=== PATIENT | female | born 1990 | race Asian ===

== ENCOUNTER 2016-11-01 00:25 | Emergency (ER) | payer OTHER ==
[2016-11-01 01:08] LABS: BASO % 0.2 % (0.0-1.0); EOS # 0.2 K/mm3 (0.0-0.50); EOS % 1.3 % (0.0-3.0); LARGE UNSTAINED CELL # 0.1 K/mm3 (0.0-0.4); LARGE UNSTAINED CELL % 0.9 % (0.0-4.0); LYMPH # 1.6 K/mm3 (1.5-6.5); LYMPH % 11.9 % (24.0-44.0); MEAN CORPUSCULAR HEMOGLOBIN 29.2 pg (27.0-33.0); MEAN CORPUSCULAR HGB CONC 33.9 g/dl (32.0-36.5); MEAN CORPUSCULAR VOLUME 86.1 fl (80.0-96.0); MONO # 0.5 K/mm3 (0.0-0.8); MONO % 3.4 % (0.0-5.0); NEUTROPHILS # 11.2 K/mm3 (1.8-7.7); NEUTROPHILS % 82.2 % (36.0-66.0); PLATELET COUNT, AUTOMATED 320 k/mm3 (150-450); WHITE BLOOD COUNT 13.6 K/mm3 (4.0-10.0)
[2016-11-01] MEDS ORDERED: METOCLOPRAMIDE INJ 10MG/2ML VIAL (J2765) As Ordered ONE (01:11)
[2016-11-01] MEDS ORDERED: MORPHINE 4 MG/ML 1ML SYRINGE As Ordered ONE (01:11)
[2016-11-01 01:36] LABS: ALBUMIN 4.1 GM/DL (3.2-5.2); ALBUMIN/GLOBULIN RATIO 0.93 (1.00-1.93); ALKALINE PHOSPHATASE 59 U/L (45-117); ALT/SGPT 26 U/L (12-78); AMYLASE 72 U/L (25-115); ANION GAP 12 MEQ/L (8-16); AST/SGOT 23 U/L (15-37); BILIRUBIN,DIRECT 0.1 MG/DL (0.0-0.2); BILIRUBIN,TOTAL 0.5 MG/DL (0.2-1.0); BLOOD UREA NITROGEN 14 MG/DL (7-18); CALCIUM LEVEL 9.3 MG/DL (8.5-10.1); CARBON DIOXIDE LEVEL 24 MEQ/L (21-32); CHLORIDE LEVEL 102 MEQ/L (98-107); CREATININE FOR GFR 0.93 MG/DL (0.55-1.02); GLOMERULAR FILTRATION RATE > 60.0 (>60); GLUCOSE, FASTING 119 MG/DL (70-105); POTASSIUM SERUM 3.7 MEQ/L (3.5-5.1); SODIUM LEVEL 138 MEQ/L (136-145); TOTAL PROTEIN 8.5 GM/DL (6.4-8.2)
[2016-11-01 01:37] LABS: CONTROL LINE HCG INT CTR LINE PRESENT
[2016-11-01] MEDS ORDERED: CIPROFLOXACIN/D5W 400 MG/200 ML BAG (J0744) As Ordered ONE (03:24)
[2016-11-01] MEDS ORDERED: ONDANSETRON 4MG/2ML VIAL (J2405) As Ordered ONE (04:24)
--- NOTE | 2016-11-01 04:59 | EDDOCDS ---
Nurse's Notes [facility] Name: Brandy Garrison Age: 26 yrs Sex: Female : 1990 Arrival Date: 11/01/2016 Time: 00:25 Bed 12 Private MD: Diagnosis: Infectious gastroenteritis and colitis, unspecified-viral;Urinary tract infection, site not specified Presentation: 11/01 00:38 Presenting complaint: Significant other states: Epigastric pain, nausea and vomiting km since 2330. Suicide/Homicide risk assessment- the patient denies having any suicidal and/or homicidal ideations and does not present with any other emotional, behavioral or mental health complaints. Status: The patient is a dependent. Transition of care: patient was not received from another setting of care. 00:38 Acuity: [place]IA [place] CARMEN Level 3 km 00:38 Method Of Arrival: Walkin/Carried/Asstd km Triage Assessment: 00:40 General: Appears uncomfortable, Behavior is appropriate for age, cooperative, pleasant. [facility] [place]: Location: epigastric area Pain currently is 0 out of 10 on a pain scale. At worst was 7 out of 10 on a pain scale. Pain began 1 hour ago Is episodic. Pt Declines HIV testing. GI: Reports epigastric pain, nausea, vomiting. 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 BCP 1 tab once daily - PMHx: none; - PSHx: none; - Social history: Smoking status: Patient states was never smoker of tobacco. No barriers to communication noted, The patient speaks fluent Greek, Speaks appropriately for age. - Family history: Not pertinent. - : The pt / caregiver states he / she is not on anticoagulants. Home medication list is obtained from the patient. - Exposure Risk Screening:: None identified. Screenin:18 Screening information is obtained from the patient. Fall risk: No risks identified. jmb Assistance ADL's: requires no assistance with activities of daily living. Abuse/DV Screen: The patient / caregiver reports he/she is: not in a situation that causes fear, pain or injury. Nutritional screening: No deficits noted. home support is adequate. 04:56 Advance Directives: Further advance directive information is declined. [facility] Assessment: 01:18 General: Appears in no apparent distress, Behavior is appropriate for age, cooperative. jmb Pain: Denies pain. 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 Cardiovascular: Capillary refill < 3 seconds Heart tones S1 S2 present Pulses are all present. Rhythm is regular. Respiratory: Airway is patent Respiratory effort is even, unlabored, Respiratory pattern is regular, symmetrical, Breath sounds are clear bilaterally. GI: Abdomen is non- distended Bowel sounds present X 4 quads. Abd is soft X 4 quads. Derm: Skin is pink, warm & dry. Musculoskeletal: Range of motion intact in all extremities. 01:52 General: Appears in no apparent distress, comfortable, Behavior is appropriate for age, jmb cooperative. Neurological: Level of Consciousness is awake, alert, obeys commands, Oriented to person, place, time. Respiratory: Airway is patent Respiratory effort is even, unlabored, Respiratory pattern is regular, symmetrical. 02:17 General: Appears in no apparent distress, comfortable, Behavior is appropriate for age, jmb cooperative. Neurological: Level of Consciousness is awake, alert, obeys commands, Oriented to person, place, time. Respiratory: Airway is patent Respiratory effort is even, unlabored, Respiratory pattern is regular, symmetrical. 02:50 General: Appears in no apparent distress, comfortable, Behavior is appropriate for age, jmb cooperative, Patient laying on stretcher, patient reports nausea is better. NO complaints of pain at this time. at bedside. . Neurological: Level of Consciousness is awake, alert, obeys commands, Oriented to person, place, time. Respiratory: Airway is patent Respiratory effort is even, unlabored, Respiratory pattern is regular, symmetrical. 03:34 General: Appears in no apparent distress, Behavior is appropriate for age, cooperative, sls1 IV antibiotics infusing without difficulty, pt tolerating sips of gingerale, SO at bedside, denies needs or complaints, call samuel in reach will continue to assess. Pain: Denies pain. Neurological: Level of Consciousness is awake, alert. Respiratory: Airway is patent Respiratory effort is even, unlabored, Respiratory pattern is regular, symmetrical. Derm: No deficits noted. 04:31 Reassessment: Patient appears in no apparent distress at this time. Pt vomited about sls1 100cc of emesis, medicated per order will continue to assess. 04:56 Reassessment: Patient appears in no apparent distress at this time. Patient states sls1 symptoms have improved. Discharge instructions reviewed with pt including medication use and follow up care, verbalizes understanding. Reports nausea has subsided and denies c/o pain. Pain: Denies pain. Neurological: Level of Consciousness is awake, alert. Respiratory: Airway is patent Respiratory effort is even, unlabored, Respiratory pattern is regular, symmetrical. Vital Signs: 00:45 BP 117 / 71; Pulse 77; Resp 18; Temp 97.8(O); Pulse Ox 100% on R/A; Pain 0/10; jmb 01:21 BP 90 / 52 Supine; Pulse 77; Resp 18; Pulse Ox 100% on R/A; jmb 01:21 BP 99 / 66 Sitting; Pulse 83; Resp 18; Pulse Ox 98% on R/A; jmb 01:21 BP 99 / 63 Standing; Pulse 74; Resp 18; Pulse Ox 99% on R/A; jmb 04:56 BP 100 / 54; Pulse 67; Resp 18; Temp 97.6(TE); Pulse Ox 99% on R/A; Pain 0/10; sls1 Vitals: 00:40 Log In Time: November 01, 2016 at 00:27. [facility] [place] Course: 00:27 Patient visited by Sophie Avila Reg. hs2 00:27 Patient moved to [facility] 00:40 Triage Initiated [facility] 00:44 Tawanda Harris DO is Attending Physician. cs11 00:44 Patient visited by Tawanda Harris DO. 11 00:44 Patient moved to [address] [place] [address] 01:18 The patient / caregiver is instructed regarding the plan of care and ED course. jmade 01:18 Inserted saline lock: 20 gauge in right antecubital area and blood collected. The b patient tolerated the procedure well. Labs drawn. (by ED staff). Sent per order to lab. 01:22 Patient visited by Gerardo Laird RN. ulises 01:31 Urine Culture Sent. napoleonb 01:31 Urinalysis Sent. napoleonb 01:53 Patient visited by Gerardo Laird RN. ulises 02:18 Patient visited by Gerardo Laird RN. ulises 02:51 Patient visited by Gerardo Laird RN. jmb 03:26 [facility]. cs11 03:35 Patient visited by Maryam Mccoy RN. sls1 04:09 Patient name changed from Brandy\S\\S\Bladimir\S\ to Brandy\S\ \S\Bladimir. EDMS 04:12 [facility] Payment Agreement was scanned into [employer] and attached to record. hs2 04:31 Patient visited by Maryam Mccoy RN. sls1 04:56 Discontinued lock intact, bleeding controlled, pressure dressing applied, No sls1 redness/swelling at site. No procedures done that require assistance. Administered Medications: 01:30 Drug: morphine 4 mg [morphine 4 mg/mL intravenous cartridge (1 mL)] Route: IVP; Site: b right antecubital; 01:55 Follow up: Response: Pain is decreased [facility] 01:31 Drug: NS 0.9% 1000 ml [sodium chloride 0.9 % intravenous solution] Route: IV; Rate: jmb bolus; Site: right antecubital; 04:30 Follow up: IV Status: Completed infusion; IV Intake: 1000ml [facility] 01:31 Drug: Metoclopramide 10 mg [metoclopramide 5 mg/mL injection solution] Route: IV; Rate: jmb 40 mg/hr; Infused Over: 15 mins; Site: right antecubital; 01:56 Follow up: Response: Nausea is resolved b 03:00 Follow up: IV Status: Completed infusion [facility] 03:34 Drug: Ciprofloxacin 400 mg [ciprofloxacin 400 mg/200 mL in 5 % dextrose intravenous [facility] piggyback] Route: IVPB; Rate: 200 mL/hr; Infused Over: 60 mins; Site: right antecubital; 04:30 Follow up: IV Status: Completed infusion; IV Intake: 200ml [facility] 04:30 Drug: Ondansetron 8 mg [ondansetron HCl 2 mg/mL intravenous solution (3.75 mL)] Route: sls1 IVP; Site: right antecubital; 04:56 Follow up: Response: Nausea is resolved [facility] Intake: 04:30 IV: 200.00ml; Total: 200.00ml. sls1 04:30 IV: 1000.00ml; Total: 1200.00ml. [facility] Order Results: Lab Order: CBC with Diff; SPEC'M 11/01/16 00:58 Test: WHITE BLOOD COUNT; Value: 13.6; Range: 4.0-10.0; Abnormal: Above high normal; Units: K/mm3; Status: F Test: RED BLOOD COUNT; Value: 5.16; Range: 4.00-5.40; Units: M/mm3; Status: F Test: HEMOGLOBIN; Value: 15.1; Range: 12.0-16.0; Units: g/dl; Status: F Test: HEMATOCRIT; Value: 44.4; Range: 36.0-47.0; Units: %; Status: F Test: MEAN CORPUSCULAR VOLUME; Value: 86.1; Range: 80.0-96.0; Units: fl; Status: F Test: MEAN CORPUSCULAR HEMOGLOBIN; Value: 29.2; Range: 27.0-33.0; Units: pg; Status: F Test: MEAN CORPUSCULAR HGB CONC; Value: 33.9; Range: 32.0-36.5; Units: g/dl; Status: F Test: RED CELL DISTRIBUTION WIDTH; Value: 12.0; Range: 11.5-14.5; Units: %; Status: F Test: PLATELET COUNT, AUTOMATED; Value: 320; Range: 150-450; Units: k/mm3; Status: F Test: NEUTROPHILS %; Value: 82.2; Range: 36.0-66.0; Abnormal: Above high normal; Units: %; Status: F Test: LYMPH %; Value: 11.9; Range: 24.0-44.0; Abnormal: Below low normal; Units: %; Status: F Test: MONO %; Value: 3.4; Range: 0.0-5.0; Units: %; Status: F Test: EOS %; Value: 1.3; Range: 0.0-3.0; Units: %; Status: F Test: BASO %; Value: 0.2; Range: 0.0-1.0; Units: %; Status: F Test: LARGE UNSTAINED CELL %; Value: 0.9; Range: 0.0-4.0; Units: %; Status: F Test: NEUTROPHILS #; Value: 11.2; Range: 1.8-7.7; Abnormal: Above high normal; Units: K/mm3; Status: F Test: LYMPH #; Value: 1.6; Range: 1.5-6.5; Units: K/mm3; Status: F Test: MONO #; Value: 0.5; Range: 0.0-0.8; Units: K/mm3; Status: F Test: EOS #; Value: 0.2; Range: 0.0-0.50; Units: K/mm3; Status: F Test: BASO #; Value: 0.0; Range: 0.0-0.2; Units: K/mm3; Status: F Test: LARGE UNSTAINED CELL #; Value: 0.1; Range: 0.0-0.4; Units: K/mm3; Status: F Lab Order: [facility] Profile[facility]58 Test: GLUCOSE, FASTING; Value: 119; Range: 70-105; Abnormal: Above high normal; Units: MG/DL; Status: F Test: BLOOD UREA NITROGEN; Value: 14; Range: 7-18; Units: MG/DL; Status: F Test: CREATININE FOR GFR; Value: 0.93; Range: 0.55-1.02; Units: MG/DL; Status: F Test: GLOMERULAR FILTRATION RATE; Value: > 60.0; Range: >60; Status: F Test: SODIUM LEVEL; Value: 138; Range: 136-145; Units: MEQ/L; Status: F Test: POTASSIUM SERUM; Value: 3.7; Range: 3.5-5.1; Units: MEQ/L; Status: F Test: CHLORIDE LEVEL; Value: 102; Range: 98-107; Units: MEQ/L; Status: F Test: CARBON DIOXIDE LEVEL; Value: 24; Range: 21-32; Units: MEQ/L; Status: F Test: ANION GAP; Value: 12; Range: 8-16; Units: MEQ/L; Status: F Test: CALCIUM LEVEL; Value: 9.3; Range: 8.5-10.1; Units: MG/DL; Status: F Test Note: ; Units are mL/min/1.73 m2 Chronic Kidney Disease Staging per NKF: Stage I & II GFR >=60 Normal to Mildly Decreased Stage III GFR 30-59 Moderately Decreased Stage IV GFR 15-29 Severely Decreased Stage V GFR <15 Very Little GFR Left ESRD GFR <15 on MANAGER LVN Lab Order: Liver Profile; [facility] 11/01/16 00:58 Test: AST/SGOT; Value: 23; Range: 15-37; Units: U/L; Status: F Test: ALT/SGPT; Value: 26; Range: 12-78; Units: U/L; Status: F Test: ALKALINE PHOSPHATASE; Value: 59; Range: 45-117; Units: U/L; Status: F Test: BILIRUBIN,TOTAL; Value: 0.5; Range: 0.2-1.0; Units: MG/DL; Status: F Test: BILIRUBIN,DIRECT; Value: 0.1; Range: 0.0-0.2; Units: MG/DL; Status: F Test: TOTAL PROTEIN; Value: 8.5; Range: 6.4-8.2; Abnormal: Above high normal; Units: GM/DL; Status: F Test: ALBUMIN; Value: 4.1; Range: 3.2-5.2; Units: GM/DL; Status: F Test: ALBUMIN/GLOBULIN RATIO; Value: 0.93; Range: 1.00-1.93; Abnormal: Below low normal; Status: F Lab Order: Amylase; [facility] 11/01/16 00:58 Test: AMYLASE; Value: 72; Range: 25-115; Units: U/L; Status: F Lab Order: Lipase; [facility] 11/01/16 00:58 Test: LIPASE; Value: 187; Range: 73-393; Units: U/L; Status: F Lab Order: HCG,Serum Qualitative; [facility] 11/01/16 00:58 Test: HCG, SERUM QUALITATIVE; Value: NEGATIVE; Range: NEGATIVE; Status: F Lab Order: Urinalysis; [facility] 11/01/16 01:28 Test: APPEARANCE, URINE; Value: CLOUDY; Range: CLEAR; Abnormal: Above high normal; Status: F Test: COLOR, URINE; Value: RUBEN; Range: YELLOW; Status: F Test: PH,URINE; Value: 7.0; Range: 5.0-9.0; Units: UNITS; Status: F Test: SPECIFIC GRAVITY URINE AUTO; Value: 1.020; Range: 1.002-1.035; Status: F Test: PROTEIN, URINE AUTO; Value: 1+; Range: NEGATIVE; Abnormal: Above high normal; Units: mg/dL; Status: F Test: GLUCOSE, URINE (UA) AUTO; Value: NEGATIVE; Range: NEGATIVE; Units: mg/dL; Status: F Test: KETONE, URINE AUTO; Value: 2+; Range: NEGATIVE; Abnormal: Above high normal; Units: mg/dL; Status: F Test: UROBILINOGEN, URINE AUTO; Value: 0.2; Range: 0.0-2.0; Units: mg/dL; Status: F Test: BILIRUBIN, URINE AUTO; Value: NEGATIVE; Range: NEGATIVE; Status: F Test: NITRITE, URINE AUTO; Value: NEGATIVE; Range: NEGATIVE; Status: F Test: LEUKOCYTE ESTERASE, URINE AUTO; Value: TRACE; Range: NEGATIVE; Abnormal: Above high normal; Status: F Test: BLOOD, URINE BLOOD; Value: NEGATIVE; Range: NEGATIVE; Status: F Test: WBC, URINE AUTO; Value: 7; Range: 0-3; Abnormal: Above high normal; Units: /HPF; Status: F Test: RBC, URINE AUTO; Value: 1; Range: 0-3; Units: /HPF; Status: F Test: BACTERIA, URINE AUTO; Value: 1+; Range: NEGATIVE; Abnormal: Above high normal; Status: F Test: SQUAMOUS EPITHELIAL CELL UR AU; Value: 6; Range: 0-6; Units: /HPF; Status: F Test: MUCUS, URINE; Value: SMALL; Range: NEGATIVE; Status: F Test: HYALINE CAST, URINE AUTO; Value: 17; Range: 0-1; Units: /LPF; Status: F Outcome: 03:27 Discharge ordered by Provider. [facility] 04:56 Discharge Assessment: Patient awake, alert and oriented x 3. No cognitive and/or sls1 functional deficits noted. Patient verbalized understanding of disposition instructions. patient administered narcotics - no. The following High Risk Discharge criteria are identified: None. Discharged to home ambulatory, with significant other. Condition: stable. Discharge instructions given to patient, Instructed on discharge instructions, follow up and referral plans. medication usage, Demonstrated understanding of instructions, medications, Pt was receptive of discharge instructions/ teaching. Prescriptions given X 2. No special radiology studies were completed. Property sent home with patient. 04:59 Patient left the ED. sls1 Signatures: Dispatcher [employer] EDAR Alexa Lucio, RN RN kmg1 Maryam Mccoy RN RN sls1 Tawanda Harris, DO cs11 Gerardo Laird RN RN jmb Sophie Avila, Reg Reg hs2 Corrections: (The following items were deleted from the chart) 01:22 00:52 BP 117 / 71; Pulse 77bpm; Resp 18bpm; Temp 97.8F Oral; Pain 0/10; ulises montgomery MTDD
--- NOTE | 2016-11-01 04:59 | EDDOCDS ---
Physician Documentation [facility] Name: Brandy Garrison Age: 26 yrs Sex: Female : 1990 Arrival Date: 11/01/2016 Time: 00:25 Bed 12 Private MD: Disposition: 11/01/16 03:27 Discharged to Home/Self Care. Impression: Infectious gastroenteritis and colitis, unspecified - viral, Urinary tract infection, site not specified. - Condition is Stable. - Prescriptions for Reglan 10 mg Oral Tablet - take 1 tablet by ORAL route every 6 hours take 30 minutes before meals and at bedtime; 20 tablet. Cipro 500 mg Oral Tablet - take 1 tablet by ORAL route every 12 hours; 10 tablet. - Medication Reconciliation, Local Pharmacy Hours form. - Follow up: [facility]; When: Call to arrange an appointment; Reason: Recheck today's complaints. - Problem is an ongoing problem. - Symptoms have improved. Historical: - Allergies: No known drug Allergies; - Home Meds: 1. BCP 1 tab once daily - PMHx: none; - PSHx: none; - Social history: Smoking status: Patient states was never smoker of tobacco. No barriers to communication noted, The patient speaks fluent Latvian, Speaks appropriately for age. - Family history: Not pertinent. - : The pt / caregiver states he / she is not on anticoagulants. Home medication list is obtained from the patient. - Exposure Risk Screening:: None identified. 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 cs11 00:38 CBC with Diff Ordered. EDMS 00:38 MED Profile Ordered. EDMS 00:38 Liver Profile Ordered. EDMS 00:38 Amylase Ordered. EDMS 00:38 Lipase Ordered. EDMS 00:38 HCG,Serum Qualitative Ordered. EDMS 00:38 Urinalysis Ordered. EDMS 00:38 Urine Culture Ordered. EDMS 00:45 NS 0.9% 1000 ml IV at bolus once ordered. cs11 01:06 Metoclopramide 10 mg IV at 40 mg/hr once over 15 mins ordered. cs11 01:07 morphine 4 mg IVP once ordered. cs11 01:38 CBC with Diff Reviewed. cs11 01:38 MED Profile Reviewed. cs11 01:38 Liver Profile Reviewed. cs11 01:38 Amylase Reviewed. cs11 01:38 Lipase Reviewed. cs11 02:01 Financial registration complete. hs2 03:12 MED Profile Reviewed. cs11 03:12 Liver Profile Reviewed. cs11 03:12 Urinalysis Reviewed. cs11 03:12 Amylase Reviewed. cs11 03:12 Lipase Reviewed. cs11 03:12 HCG,Serum Qualitative Reviewed. cs11 03:13 Ciprofloxacin 400 mg IVPB at 200 mL/hr once over 60 mins ordered. cs11 04:12 [facility] [place] [place] Payment Agreement was scanned into [employer] and attached to record. hs2 04:22 Ondansetron 8 mg IVP once ordered. cs11 Administered Medications: 01:30 Drug: morphine 4 mg [morphine 4 mg/mL intravenous cartridge (1 mL)] Route: IVP; Site: [facility] right antecubital; 01:55 Follow up: Response: Pain is decreased [facility] 01:31 Drug: NS 0.9% 1000 ml [sodium chloride 0.9 % intravenous solution] Route: IV; Rate: jmb bolus; Site: right antecubital; 04:30 Follow up: IV Status: Completed infusion; IV Intake: 1000ml [facility] 01:31 Drug: Metoclopramide 10 mg [metoclopramide 5 mg/mL injection solution] Route: IV; Rate: jmb 40 mg/hr; Infused Over: 15 mins; Site: right antecubital; 01:56 Follow up: Response: Nausea is resolved jmb 03:00 Follow up: IV Status: Completed infusion sls1 03:34 Drug: Ciprofloxacin 400 mg [ciprofloxacin 400 mg/200 mL in 5 % dextrose intravenous sls1 piggyback] Route: IVPB; Rate: 200 mL/hr; Infused Over: 60 mins; Site: right antecubital; 04:30 Follow up: IV Status: Completed infusion; IV Intake: 200ml [facility] 04:30 Drug: Ondansetron 8 mg [ondansetron HCl 2 mg/mL intravenous solution (3.75 mL)] Route: sls1 IVP; Site: right antecubital; 04:56 Follow up: Response: Nausea is resolved [facility] Signatures: Dispatcher [employer] EDAlexa Hameed, RN RN kmg1 Maryam Mccoy RN RN sls1 Tawanda Harris DO DO cs11 Gerardo LairdRN RN jmb Sophie Avila, Reg Reg hs2 The chart was reviewed and I authenticate all verbal orders and agree with the evaluation and treatment provided.Attachments: 04:12 [facility] Payment Agreement hs2 MTDD
--- NOTE | 2016-11-03 06:01 | EDDOCDS ---
Physician Documentation [facility] Name: Brandy Garrison Age: 26 yrs Sex: Female : 1990 Arrival Date: 11/01/2016 Time: 00:25 Bed 12 Private MD: Disposition: 11/01/16 03:27 Discharged to Home/Self Care. Impression: Infectious gastroenteritis and colitis, unspecified - viral, Urinary tract infection, site not specified. - Condition is Stable. - Prescriptions for Reglan 10 mg Oral Tablet - take 1 tablet by ORAL route every 6 hours take 30 minutes before meals and at bedtime; 20 tablet. Cipro 500 mg Oral Tablet - take 1 tablet by ORAL route every 12 hours; 10 tablet. - Medication Reconciliation, Local Pharmacy Hours form. - Follow up: Bg Kaplan [facility]; When: Call to arrange an appointment; Reason: Recheck today's complaints. - Problem is an ongoing problem. - Symptoms have improved. Historical: - Allergies: No known drug Allergies; - Home Meds: 1. BCP 1 tab once daily - PMHx: none; - PSHx: none; - Social history: Smoking status: Patient states was never smoker of tobacco. No barriers to communication noted, The patient speaks fluent Greenlandic, Speaks appropriately for age. - Family history: Not pertinent. - : The pt / caregiver states he / she is not on anticoagulants. Home medication list is obtained from the patient. - Exposure Risk Screening:: None identified. 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 cs11 00:38 CBC with Diff Ordered. EDMS 00:38 MED Profile Ordered. EDMS 00:38 Liver Profile Ordered. EDMS 00:38 Amylase Ordered. EDMS 00:38 Lipase Ordered. EDMS 00:38 HCG,Serum Qualitative Ordered. EDMS 00:38 Urinalysis Ordered. EDMS 00:38 Urine Culture Ordered. EDMS 00:45 NS 0.9% 1000 ml IV at bolus once ordered. cs11 01:06 Metoclopramide 10 mg IV at 40 mg/hr once over 15 mins ordered. cs11 01:07 morphine 4 mg IVP once ordered. cs11 01:38 CBC with Diff Reviewed. cs11 01:38 MED Profile Reviewed. cs11 01:38 Liver Profile Reviewed. cs11 01:38 Amylase Reviewed. cs11 01:38 Lipase Reviewed. cs11 02:01 Financial registration complete. hs2 03:12 MED Profile Reviewed. cs11 03:12 Liver Profile Reviewed. cs11 03:12 Urinalysis Reviewed. cs11 03:12 Amylase Reviewed. cs11 03:12 Lipase Reviewed. cs11 03:12 HCG,Serum Qualitative Reviewed. cs11 03:13 Ciprofloxacin 400 mg IVPB at 200 mL/hr once over 60 mins ordered. cs11 04:12 [facility] Payment Agreement was scanned into [employer] and attached to record. hs2 04:22 Ondansetron 8 mg IVP once ordered. cs11 09:36 T-Sheet-- Draft Copy was scanned into [employer] and attached to record. [facility] Administered Medications: 01:30 Drug: morphine 4 mg [morphine 4 mg/mL intravenous cartridge (1 mL)] Route: IVP; Site: [facility] right antecubital; 01:55 Follow up: Response: Pain is decreased [facility] 01:31 Drug: NS 0.9% 1000 ml [sodium chloride 0.9 % intravenous solution] Route: IV; Rate: jmb bolus; Site: right antecubital; 04:30 Follow up: IV Status: Completed infusion; IV Intake: 1000ml [facility] 01:31 Drug: Metoclopramide 10 mg [metoclopramide 5 mg/mL injection solution] Route: IV; Rate: jmb 40 mg/hr; Infused Over: 15 mins; Site: right antecubital; 01:56 Follow up: Response: Nausea is resolved jmb 03:00 Follow up: IV Status: Completed infusion sls1 03:34 Drug: Ciprofloxacin 400 mg [ciprofloxacin 400 mg/200 mL in 5 % dextrose intravenous [facility] piggyback] Route: IVPB; Rate: 200 mL/hr; Infused Over: 60 mins; Site: right antecubital; 04:30 Follow up: IV Status: Completed infusion; IV Intake: 200ml [facility] 04:30 Drug: Ondansetron 8 mg [ondansetron HCl 2 mg/mL intravenous solution (3.75 mL)] Route: [facility] IVP; Site: right antecubital; 04:56 Follow up: Response: Nausea is resolved [facility] Signatures: Dispatcher [employer] EDAlexa Hameed RN RN kmg1 Maryam Mccoy RN RN [facility] Tawanda Harris, DO 11 Gerardo Laird RN RN jmb Sophie Avila, Reg Reg hs2 Kerri Hogan The chart was reviewed and I authenticate all verbal orders and agree with the evaluation and treatment provided.Attachments: 04:12 [facility] Payment Agreement hs2 09:36 T-Sheet-- Draft Copy [facility] Chart Complete MTDD
--- NOTE | 2016-11-03 06:01 | EDDOCDS ---
Nurse's Notes [facility] Name: Brandy Garrison Age: 26 yrs Sex: Female : 1990 Arrival Date: 11/01/2016 Time: 00:25 Bed 12 Private MD: Diagnosis: Infectious gastroenteritis and colitis, unspecified-viral;Urinary tract infection, site not specified Presentation: 11/01 00:38 Presenting complaint: Significant other states: Epigastric pain, nausea and vomiting km since 2330. Suicide/Homicide risk assessment- the patient denies having any suicidal and/or homicidal ideations and does not present with any other emotional, behavioral or mental health complaints. Status: The patient is a dependent. Transition of care: patient was not received from another setting of care. 00:38 Acuity: [place] Level 3 km 00:38 Method Of Arrival: Walkin/Carried/Asstd km Triage Assessment: 00:40 General: Appears uncomfortable, Behavior is appropriate for age, cooperative, pleasant. [facility] Pain: Location: epigastric area Pain currently is 0 out of 10 on a pain scale. At worst was 7 out of 10 on a pain scale. Pain began 1 hour ago Is episodic. Pt Declines HIV testing. GI: Reports epigastric pain, nausea, vomiting. [employer]: 00:40 LMP 10/18/2016 [facility] Historical: - Allergies: No known drug Allergies; - Home Meds: 1. BCP 1 tab once daily - PMHx: none; - PSHx: none; - Social history: Smoking status: Patient states was never smoker of tobacco. No barriers to communication noted, The patient speaks fluent [place], Speaks appropriately for age. - Family history: Not pertinent. - : The pt / caregiver states he / she is not on anticoagulants. Home medication list is obtained from the patient. - Exposure Risk Screening:: None identified. Screenin:18 Screening information is obtained from the patient. Fall risk: No risks identified. jmb Assistance ADL's: requires no assistance with activities of daily living. Abuse/DV Screen: The patient / caregiver reports he/she is: not in a situation that causes fear, pain or injury. Nutritional screening: No deficits noted. home support is adequate. 04:56 Advance Directives: Further advance directive information is declined. [facility] Assessment: 01:18 General: Appears in no apparent distress, Behavior is appropriate for age, cooperative. jmb Pain: Denies pain. Neurological: Level of Consciousness is awake, alert, obeys commands, Oriented to person, place, time, [employer] are equal bilaterally Speech is normal, Facial symmetry appears normal, Facial symmetry: tongue is midline. Cardiovascular: Capillary refill < 3 seconds Heart tones S1 S2 present Pulses are all present. Rhythm is regular. Respiratory: Airway is patent Respiratory effort is even, unlabored, Respiratory pattern is regular, symmetrical, Breath sounds are clear bilaterally. GI: Abdomen is non- distended Bowel sounds present X 4 quads. Abd is soft X 4 quads. Derm: Skin is pink, warm & dry. Musculoskeletal: Range of motion intact in all extremities. 01:52 General: Appears in no apparent distress, comfortable, Behavior is appropriate for age, jmb cooperative. Neurological: Level of Consciousness is awake, alert, obeys commands, Oriented to person, place, time. Respiratory: Airway is patent Respiratory effort is even, unlabored, Respiratory pattern is regular, symmetrical. 02:17 General: Appears in no apparent distress, comfortable, Behavior is appropriate for age, jmb cooperative. Neurological: Level of Consciousness is awake, alert, obeys commands, Oriented to person, place, time. Respiratory: Airway is patent Respiratory effort is even, unlabored, Respiratory pattern is regular, symmetrical. 02:50 General: Appears in no apparent distress, comfortable, Behavior is appropriate for age, jmb cooperative, Patient laying on stretcher, patient reports nausea is better. NO complaints of pain at this time. at bedside. . Neurological: Level of Consciousness is awake, alert, obeys commands, Oriented to person, place, time. Respiratory: Airway is patent Respiratory effort is even, unlabored, Respiratory pattern is regular, symmetrical. 03:34 General: Appears in no apparent distress, Behavior is appropriate for age, cooperative, sls1 IV antibiotics infusing without difficulty, pt tolerating sips of gingerale, SO at bedside, denies needs or complaints, call samuel in reach will continue to assess. Pain: Denies pain. Neurological: Level of Consciousness is awake, alert. Respiratory: Airway is patent Respiratory effort is even, unlabored, Respiratory pattern is regular, symmetrical. Derm: No deficits noted. 04:31 Reassessment: Patient appears in no apparent distress at this time. Pt vomited about sls1 100cc of emesis, medicated per order will continue to assess. 04:56 Reassessment: Patient appears in no apparent distress at this time. Patient states sls1 symptoms have improved. Discharge instructions reviewed with pt including medication use and follow up care, verbalizes understanding. Reports nausea has subsided and denies c/o pain. Pain: Denies pain. Neurological: Level of Consciousness is awake, alert. Respiratory: Airway is patent Respiratory effort is even, unlabored, Respiratory pattern is regular, symmetrical. Vital Signs: 00:45 BP 117 / 71; Pulse 77; Resp 18; Temp 97.8(O); Pulse Ox 100% on R/A; Pain 0/10; jmb 01:21 BP 90 / 52 Supine; Pulse 77; Resp 18; Pulse Ox 100% on R/A; jmb 01:21 BP 99 / 66 Sitting; Pulse 83; Resp 18; Pulse Ox 98% on R/A; jmb 01:21 BP 99 / 63 Standing; Pulse 74; Resp 18; Pulse Ox 99% on R/A; jmb 04:56 BP 100 / 54; Pulse 67; Resp 18; Temp 97.6(TE); Pulse Ox 99% on R/A; Pain 0/10; sls1 Vitals: 00:40 Log In Time: November 01, 2016 at 00:27. [facility] ED Course: 00:27 Patient visited by Sophie Avila Reg. hs2 00:27 Patient moved to [facility] 00:40 Triage Initiated [facility] 00:44 Tawanda Harris DO is Attending Physician. cs11 00:44 Patient visited by Tawanda Harris DO. 11 00:44 Patient moved to [address] [place] [address] 01:18 The patient / caregiver is instructed regarding the plan of care and ED course. jmade 01:18 Inserted saline lock: 20 gauge in right antecubital area and blood collected. The b patient tolerated the procedure well. Labs drawn. (by ED staff). Sent per order to lab. 01:22 Patient visited by Gerardo Laird RN. ulises 01:31 Urine Culture Sent. napoleonb 01:31 Urinalysis Sent. napoleonb 01:53 Patient visited by Gerardo Laird RN. ulises 02:18 Patient visited by Gerardo Laird RN. ulises 02:51 Patient visited by Gerardo Laird RN. jmb 03:26 Bg Kaplan [facility] is Referral Physician. cs11 03:35 Patient visited by Maryam Mccoy RN. sls1 04:09 Patient name changed from Brandy\S\\S\Bladimir\S\ to Brandy\S\ \S\Bladimir. EDMS 04:12 [place] [place] Agreement was scanned into [employer] and attached to record. hs2 04:31 Patient visited by Maryam Mccoy RN. sls1 04:56 Discontinued lock intact, bleeding controlled, pressure dressing applied, No sls1 redness/swelling at site. No procedures done that require assistance. 09:36 T-Sheet-- Draft Copy was scanned into [employer] and attached to record. [facility] Administered Medications: 01:30 Drug: morphine 4 mg [morphine 4 mg/mL intravenous cartridge (1 mL)] Route: IVP; Site: [facility] right antecubital; 01:55 Follow up: Response: Pain is decreased [facility] 01:31 Drug: NS 0.9% 1000 ml [sodium chloride 0.9 % intravenous solution] Route: IV; Rate: jmb bolus; Site: right antecubital; 04:30 Follow up: IV Status: Completed infusion; IV Intake: 1000ml [facility] 01:31 Drug: Metoclopramide 10 mg [metoclopramide 5 mg/mL injection solution] Route: IV; Rate: jmb 40 mg/hr; Infused Over: 15 mins; Site: right antecubital; 01:56 Follow up: Response: Nausea is resolved b 03:00 Follow up: IV Status: Completed infusion [facility] 03:34 Drug: Ciprofloxacin 400 mg [ciprofloxacin 400 mg/200 mL in 5 % dextrose intravenous [facility] piggyback] Route: IVPB; Rate: 200 mL/hr; Infused Over: 60 mins; Site: right antecubital; 04:30 Follow up: IV Status: Completed infusion; IV Intake: 200ml [facility] 04:30 Drug: Ondansetron 8 mg [ondansetron HCl 2 mg/mL intravenous solution (3.75 mL)] Route: sls1 IVP; Site: right antecubital; 04:56 Follow up: Response: Nausea is resolved [facility] Intake: 04:30 IV: 200.00ml; Total: 200.00ml. sls1 04:30 IV: 1000.00ml; Total: 1200.00ml. sls1 Order Results: Lab Order: CBC with Diff; SPEC'M 11/01/16 00:58 Test: WHITE BLOOD COUNT; Value: 13.6; Range: 4.0-10.0; Abnormal: Above high normal; Units: K/mm3; Status: F Test: RED BLOOD COUNT; Value: 5.16; Range: 4.00-5.40; Units: M/mm3; Status: F Test: HEMOGLOBIN; Value: 15.1; Range: 12.0-16.0; Units: g/dl; Status: F Test: HEMATOCRIT; Value: 44.4; Range: 36.0-47.0; Units: %; Status: F Test: MEAN CORPUSCULAR VOLUME; Value: 86.1; Range: 80.0-96.0; Units: fl; Status: F Test: MEAN CORPUSCULAR HEMOGLOBIN; Value: 29.2; Range: 27.0-33.0; Units: pg; Status: F Test: MEAN CORPUSCULAR HGB CONC; Value: 33.9; Range: 32.0-36.5; Units: g/dl; Status: F Test: RED CELL DISTRIBUTION WIDTH; Value: 12.0; Range: 11.5-14.5; Units: %; Status: F Test: PLATELET COUNT, AUTOMATED; Value: 320; Range: 150-450; Units: k/mm3; Status: F Test: NEUTROPHILS %; Value: 82.2; Range: 36.0-66.0; Abnormal: Above high normal; Units: %; Status: F Test: LYMPH %; Value: 11.9; Range: 24.0-44.0; Abnormal: Below low normal; Units: %; Status: F Test: MONO %; Value: 3.4; Range: 0.0-5.0; Units: %; Status: F Test: EOS %; Value: 1.3; Range: 0.0-3.0; Units: %; Status: F Test: BASO %; Value: 0.2; Range: 0.0-1.0; Units: %; Status: F Test: LARGE UNSTAINED CELL %; Value: 0.9; Range: 0.0-4.0; Units: %; Status: F Test: NEUTROPHILS #; Value: 11.2; Range: 1.8-7.7; Abnormal: Above high normal; Units: K/mm3; Status: F Test: LYMPH #; Value: 1.6; Range: 1.5-6.5; Units: K/mm3; Status: F Test: MONO #; Value: 0.5; Range: 0.0-0.8; Units: K/mm3; Status: F Test: EOS #; Value: 0.2; Range: 0.0-0.50; Units: K/mm3; Status: F Test: BASO #; Value: 0.0; Range: 0.0-0.2; Units: K/mm3; Status: F Test: LARGE UNSTAINED CELL #; Value: 0.1; Range: 0.0-0.4; Units: K/mm3; Status: F Lab Order: MED Profile; [facility] 11/01/16 00:58 Test: GLUCOSE, FASTING; Value: 119; Range: 70-105; Abnormal: Above high normal; Units: MG/DL; Status: F Test: BLOOD UREA NITROGEN; Value: 14; Range: 7-18; Units: MG/DL; Status: F Test: CREATININE FOR GFR; Value: 0.93; Range: 0.55-1.02; Units: MG/DL; Status: F Test: GLOMERULAR FILTRATION RATE; Value: > 60.0; Range: >60; Status: F Test: SODIUM LEVEL; Value: 138; Range: 136-145; Units: MEQ/L; Status: F Test: POTASSIUM SERUM; Value: 3.7; Range: 3.5-5.1; Units: MEQ/L; Status: F Test: CHLORIDE LEVEL; Value: 102; Range: 98-107; Units: MEQ/L; Status: F Test: CARBON DIOXIDE LEVEL; Value: 24; Range: 21-32; Units: MEQ/L; Status: F Test: ANION GAP; Value: 12; Range: 8-16; Units: MEQ/L; Status: F Test: CALCIUM LEVEL; Value: 9.3; Range: 8.5-10.1; Units: MG/DL; Status: F Test Note: ; Units are mL/min/1.73 m2 Chronic Kidney Disease Staging per NKF: Stage I & II GFR >=60 Normal to Mildly Decreased Stage III GFR 30-59 Moderately Decreased Stage IV GFR 15-29 Severely Decreased Stage V GFR <15 Very Little GFR Left ESRD GFR <15 on 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 Lab Order: Liver Profile; [facility] 00:58 Test: AST/SGOT; Value: 23; Range: 15-37; Units: U/L; Status: F Test: ALT/SGPT; Value: 26; Range: 12-78; Units: U/L; Status: F Test: ALKALINE PHOSPHATASE; Value: 59; Range: 45-117; Units: U/L; Status: F Test: BILIRUBIN,TOTAL; Value: 0.5; Range: 0.2-1.0; Units: MG/DL; Status: F Test: BILIRUBIN,DIRECT; Value: 0.1; Range: 0.0-0.2; Units: MG/DL; Status: F Test: TOTAL PROTEIN; Value: 8.5; Range: 6.4-8.2; Abnormal: Above high normal; Units: GM/DL; Status: F Test: ALBUMIN; Value: 4.1; Range: 3.2-5.2; Units: GM/DL; Status: F Test: ALBUMIN/GLOBULIN RATIO; Value: 0.93; Range: 1.00-1.93; Abnormal: Below low normal; Status: F Lab Order: Amylase; [facility] 11/01/16 00:58 Test: AMYLASE; Value: 72; Range: 25-115; Units: U/L; Status: F Lab Order: Lipase; 11/01/16 00:58 Test: LIPASE; Value: 187; Range: 73-393; Units: U/L; Status: F Lab Order: HCG,Serum Qualitative; 11/01/16 00:58 Test: HCG, SERUM QUALITATIVE; Value: NEGATIVE; Range: NEGATIVE; Status: F Lab Order: Urinalysis; [facility] 11/01/16 01:28 Test: APPEARANCE, URINE; Value: CLOUDY; Range: CLEAR; Abnormal: Above high normal; Status: F Test: COLOR, URINE; Value: RUBEN; Range: YELLOW; Status: F Test: PH,URINE; Value: 7.0; Range: 5.0-9.0; Units: UNITS; Status: F Test: SPECIFIC GRAVITY URINE AUTO; Value: 1.020; Range: 1.002-1.035; Status: F Test: PROTEIN, URINE AUTO; Value: 1+; Range: NEGATIVE; Abnormal: Above high normal; Units: mg/dL; Status: F Test: GLUCOSE, URINE (UA) AUTO; Value: NEGATIVE; Range: NEGATIVE; Units: mg/dL; Status: F Test: KETONE, URINE AUTO; Value: 2+; Range: NEGATIVE; Abnormal: Above high normal; Units: mg/dL; Status: F Test: UROBILINOGEN, URINE AUTO; Value: 0.2; Range: 0.0-2.0; Units: mg/dL; Status: F Test: BILIRUBIN, URINE AUTO; Value: NEGATIVE; Range: NEGATIVE; Status: F Test: NITRITE, URINE AUTO; Value: NEGATIVE; Range: NEGATIVE; Status: F Test: LEUKOCYTE ESTERASE, URINE AUTO; Value: TRACE; Range: NEGATIVE; Abnormal: Above high normal; Status: F Test: BLOOD, URINE BLOOD; Value: NEGATIVE; Range: NEGATIVE; Status: F Test: WBC, URINE AUTO; Value: 7; Range: 0-3; Abnormal: Above high normal; Units: /HPF; Status: F Test: RBC, URINE AUTO; Value: 1; Range: 0-3; Units: /HPF; Status: F Test: BACTERIA, URINE AUTO; Value: 1+; Range: NEGATIVE; Abnormal: Above high normal; Status: F Test: SQUAMOUS EPITHELIAL CELL UR AU; Value: 6; Range: 0-6; Units: /HPF; Status: F Test: MUCUS, URINE; Value: SMALL; Range: NEGATIVE; Status: F Test: HYALINE CAST, URINE AUTO; Value: 17; Range: 0-1; Units: /LPF; Status: F Lab Order: Urine Culture; SPEC'M 11/01/16 01:28 Test: URINE CULTURE; Value: <EXTERNAL COMMENT eCWMed> FULL REPORT IN LAB NOTES (eCW and Medent).; Status: F Test: URINE CULTURE; Value: URINE CULTURE RESULT SPECIMEN APPEARS CONTAMINATED; Status: F Outcome: 03:27 Discharge ordered by Provider. cs11 04:56 Discharge Assessment: Patient awake, alert and oriented x 3. No cognitive and/or sls1 functional deficits noted. Patient verbalized understanding of disposition instructions. patient administered narcotics - no. The following High Risk Discharge criteria are identified: None. Discharged to home ambulatory, with significant other. Condition: stable. Discharge instructions given to patient, Instructed on discharge instructions, follow up and referral plans. medication usage, Demonstrated understanding of instructions, medications, Pt was receptive of discharge instructions/ teaching. Prescriptions given X 2. No special radiology studies were completed. Property sent home with patient. 04:59 Patient left the ED. sls1 Signatures: Dispatcher [employer] EDMS Alexa Lucio, RN RN kmg1 Maryam Mccoy RN RN sls1 Tawanda Harris DO DO cs11 Gerardo LairdRN RN napoleonb Sophie Avila, Reg Reg hs2 Kerri Hogan Corrections: (The following items were deleted from the chart) 01:22 00:52 BP 117 / 71; Pulse 77bpm; Resp 18bpm; Temp 97.8F Oral; Pain 0/10; ulises montgomery Chart Complete MTDD
--- NOTE | 2016-11-03 06:01 | EDDOCDS ---
Physician Documentation [facility] Name: Brandy Garrison Age: 26 yrs Sex: Female : 1990 Arrival Date: 11/01/2016 Time: 00:25 Bed 12 Private MD: Disposition: 11/01/16 03:27 Discharged to Home/Self Care. Impression: Infectious gastroenteritis and colitis, unspecified - viral, Urinary tract infection, site not specified. - Condition is Stable. - Prescriptions for Reglan 10 mg Oral Tablet - take 1 tablet by ORAL route every 6 hours take 30 minutes before meals and at bedtime; 20 tablet. Cipro 500 mg Oral Tablet - take 1 tablet by ORAL route every 12 hours; 10 tablet. - Medication Reconciliation, Local Pharmacy Hours form. - Follow up: [facility]; When: Call to arrange an appointment; Reason: Recheck today's complaints. - Problem is an ongoing problem. - Symptoms have improved. Historical: - Allergies: No known drug Allergies; - Home Meds: 1. BCP 1 tab once daily - PMHx: none; - PSHx: none; - Social history: Smoking status: Patient states was never smoker of tobacco. No barriers to communication noted, The patient speaks fluent Nepali, Speaks appropriately for age. - Family history: Not pertinent. - : The pt / caregiver states he / she is not on anticoagulants. Home medication list is obtained from the patient. - Exposure Risk Screening:: None identified. 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 cs11 00:38 CBC with Diff Ordered. EDMS 00:38 MED Profile Ordered. EDMS 00:38 Liver Profile Ordered. EDMS 00:38 Amylase Ordered. EDMS 00:38 Lipase Ordered. EDMS 00:38 HCG,Serum Qualitative Ordered. EDMS 00:38 Urinalysis Ordered. EDMS 00:38 Urine Culture Ordered. EDMS 00:45 NS 0.9% 1000 ml IV at bolus once ordered. cs11 01:06 Metoclopramide 10 mg IV at 40 mg/hr once over 15 mins ordered. cs11 01:07 morphine 4 mg IVP once ordered. cs11 01:38 CBC with Diff Reviewed. cs11 01:38 MED Profile Reviewed. cs11 01:38 Liver Profile Reviewed. cs11 01:38 Amylase Reviewed. cs11 01:38 Lipase Reviewed. cs11 02:01 Financial registration complete. hs2 03:12 MED Profile Reviewed. cs11 03:12 Liver Profile Reviewed. cs11 03:12 Urinalysis Reviewed. cs11 03:12 Amylase Reviewed. cs11 03:12 Lipase Reviewed. cs11 03:12 HCG,Serum Qualitative Reviewed. cs11 03:13 Ciprofloxacin 400 mg IVPB at 200 mL/hr once over 60 mins ordered. cs11 04:12 [facility] Payment Agreement was scanned into [employer] and attached to record. hs2 04:22 Ondansetron 8 mg IVP once ordered. cs11 09:36 T-Sheet-- Draft Copy was scanned into [employer] and attached to record. [facility] Administered Medications: 01:30 Drug: morphine 4 mg [morphine 4 mg/mL intravenous cartridge (1 mL)] Route: IVP; Site: [facility] right antecubital; 01:55 Follow up: Response: Pain is decreased [facility] 01:31 Drug: NS 0.9% 1000 ml [sodium chloride 0.9 % intravenous solution] Route: IV; Rate: jmb bolus; Site: right antecubital; 04:30 Follow up: IV Status: Completed infusion; IV Intake: 1000ml [facility] 01:31 Drug: Metoclopramide 10 mg [metoclopramide 5 mg/mL injection solution] Route: IV; Rate: jmb 40 mg/hr; Infused Over: 15 mins; Site: right antecubital; 01:56 Follow up: Response: Nausea is resolved jmb 03:00 Follow up: IV Status: Completed infusion sls1 03:34 Drug: Ciprofloxacin 400 mg [ciprofloxacin 400 mg/200 mL in 5 % dextrose intravenous [facility] piggyback] Route: IVPB; Rate: 200 mL/hr; Infused Over: 60 mins; Site: right antecubital; 04:30 Follow up: IV Status: Completed infusion; IV Intake: 200ml [facility] 04:30 Drug: Ondansetron 8 mg [ondansetron HCl 2 mg/mL intravenous solution (3.75 mL)] Route: [facility] IVP; Site: right antecubital; 04:56 Follow up: Response: Nausea is resolved [facility] Signatures: Dispatcher [employer] EDAlexa Hameed RN RN [email or web address] Maryam Mccoy RN RN [facility] Tawanda Harris, DO 11 Gerardo Laird RN RN jmb Sophie Avila, Reg Reg hs2 Kerri Hogan The chart was reviewed and I authenticate all verbal orders and agree with the evaluation and treatment provided.Attachments: 04:12 [facility] Payment Agreement hs2 09:36 T-Sheet-- Draft Copy [facility] Chart Complete MTDD
== END 2016-11-01 04:59 | disposition home or self-care (01) ==
LOC: M ED 00:25
DX: K52.9 Noninfective gastroenteritis and colitis, unspecified (principal); N39.0 Urinary tract infection, site not specified; Z79.3 Long term (current) use of hormonal contraceptives
CPT/HCPCS: 36415; 80048; 80076; 81001; 82150; 83690; 84703; 85025; 87086; 96361; 96365; 96367; 96375; 99284; J0744; J2405; J2765